=== PATIENT | female | born 1930 | race Caucasian/White ===

== ENCOUNTER 2020-09-04 10:10 | Emergency (ER) | payer MEDICARE ==
[~2020-09-04 10:10] MED LIST: ASPIRIN CHEWABL81 MG PO; CARDIZEM CD240 MG PO; COLACE100 MG PO; DOXYCYCLINE MO100 MG PO; FOLIXAPURE5000 UNIT PO; LEXAPRO 10MG TA10 MG PO; LOPRESSOR25 MG PO; OXY-IR 5MG5 MG PO; PRAVASTATIN SOD10 MG PO; PRILOSEC20 MG PO; TRAMADOL HCL50 MG PO; TYLENOL #31 EACH PO; ULTRAM50 MG PO; [UNRECOGNIZED DRUG - OTHER] PO
== END 2020-09-04 12:14 | disposition home or self-care (01) ==
LOC: FER 10:10
DX: S20.211A Contusion of right front wall of thorax, initial encounter (principal); S00.83XA Contusion of other part of head, initial encounter; M79.601 Pain in right arm; E78.00 Pure hypercholesterolemia, unspecified; I10 Essential (primary) hypertension; Z79.899 Other long term (current) drug therapy
CPT/HCPCS: 71101

== ENCOUNTER 2020-11-08 20:26 | Emergency (ER) | payer MEDICARE ==
[2020-11-08 21:55] LABS: BASOPHIL 0.4 % (0-2); EOSINOPHIL 1.8 % (0-7); HCT 36.6 % (37.0-47.0); HGB 12.4 g/dl (12.5-16.0); LYMPHOCYTE 2.5 % (15-48); MCH 29.9 pg (25.0-31.0); MCHC 33.9 g/dL (32.0-36.0); MCV 88.2 fL (78.0-100.0); MONOCYTE 3.3 % (0-12); MPV 10.1 fL (6.0-9.5); NEUTROPHIL 91.8 % (41-80); NRBC 0; PLT 556 K/uL (150-400); RBC 4.15 M/uL (4.20-5.40); RDW 13.4 % (11.5-14.0)
[2020-11-08 22:06] LABS: INR 1.1 (0.9-1.2); PROTHROMBIN TIME 13.5 SECONDS (11.4-13.6); PTT 28.6 SECONDS (22.2-34.7)
[2020-11-08 22:22] LABS: ALBUMIN 2.6 g/dL (3.4-5.0); ALKALINE PHOSHATASE 128 U/L (46-116); ALT 31 U/L (14-59); AST 23 U/L (15-37); BILIRUBIN - TOTAL 0.7 mg/dL (0.2-1.0); BUN 31 mg/dL (7-18); CHLORIDE 95 mmol/L (98-107); CO2 (BICARBONATE) 24 mmol/L (21-32); CPK 25 U/L (26-192); CREATININE 1.33 mg/dL (0.51-0.95); GLOBULIN (CALCULATION) 4.3 g/dL; GLUCOSE 145 mg/dL (74-106); LDH 182 U/L (81-234); LIPASE 204 U/L (73-393); MAGNESIUM 1.6 mg/dL (1.8-2.4); POTASSIUM 4.4 mmol/L (3.5-5.1); PRO-BNP 2905 pg/mL (<450); TOTAL PROTEIN 6.9 g/dL (6.4-8.2)
[2020-11-08 22:25] LABS: LACTIC ACID 2.5 mmol/L (0.4-1.9)
[2020-11-09 00:06] LABS: BILIRUBIN NEGATIVE (NEGATIVE); BLOOD NEGATIVE Ery/uL (NEGATIVE); CLARITY CLEAR (CLEAR); COLOR YELLOW (YELLOW); GLUCOSE (U) NORMAL (NORMAL); LEUKOCYTES 1+ Leu/uL (NEGATIVE); NITRITE NEGATIVE (NEGATIVE); PROTEIN TRACE (LOW) mg/dL (NEGATIVE); UROBILINOGEN 0.2 mg/dL (0.2-1.0)
[2020-11-09 00:12] LABS: BACTERIA TRACE; SQUAMOUS EPITHELIAL CELLS RARE
[2020-11-09 05:11] LABS: BASOPHIL 0.6 % (0-2); EOSINOPHIL 0.4 % (0-7); HCT 31.8 % (37.0-47.0); HGB 10.6 g/dl (12.5-16.0); LYMPHOCYTE 2.4 % (15-48); MCH 30.1 pg (25.0-31.0); MCHC 33.3 g/dL (32.0-36.0); MCV 90.3 fL (78.0-100.0); MONOCYTE 1.5 % (0-12); MPV 10.1 fL (6.0-9.5); NRBC 0; PLT 505 K/uL (150-400); RBC 3.52 M/uL (4.20-5.40); RDW 13.7 % (11.5-14.0)
[2020-11-09 05:29] LABS: BUN/CREAT RATIO (CALC) 20.9 RATIO; CREATININE 1.63 mg/dL (0.51-0.95); POTASSIUM 4.6 mmol/L (3.5-5.1)
== END 2020-11-09 08:18 | disposition other institution (70) ==
LOC: FER 20:26
PROVIDERS: Emergency Medicine
DX: A41.9 Sepsis, unspecified organism (principal); R65.21 Severe sepsis with septic shock; K63.1 Perforation of intestine (nontraumatic); J98.59 Other diseases of mediastinum, not elsewhere classified; K66.8 Other specified disorders of peritoneum; Z20.822 Contact with and (suspected) exposure to COVID-19; Z79.899 Other long term (current) drug therapy
CPT/HCPCS: 36415; 71045; 71250; 80048; 80053; 80162; 81001; 82550; 83605; 83615; 83690; 83735; 83880; 84145; 84443; 84484; 85025; 85610; 85730; 87040; 87088; 93005; 96365; 96366; 96367; 96375; 96376; J1170; J2405; J2543; J3010; J3480; J7030; J7040; U0002

== ENCOUNTER 2020-12-06 04:23 | Emergency (ER) | payer MEDICARE ==
[2020-12-06 06:35] LABS: BASOPHIL 0.9 % (0-2); EOSINOPHIL 2.3 % (0-7); HCT 32.4 % (37.0-47.0); HGB 9.7 g/dl (12.5-16.0); LYMPHOCYTE 12.9 % (15-48); MCHC 29.9 g/dL (32.0-36.0); MCV 100.3 fL (78.0-100.0); MONOCYTE 12.1 % (0-12); MPV 11.1 fL (6.0-9.5); NEUTROPHIL 71.3 % (41-80); NRBC 0; PLT 464 K/uL (150-400); RBC 3.23 M/uL (4.20-5.40); RDW 18.1 % (11.5-14.0); WBC 10.5 K/uL (4.0-10.5)
[2020-12-06 06:51] LABS: ALBUMIN 2.5 g/dL (3.4-5.0); BILIRUBIN - TOTAL 0.3 mg/dL (0.2-1.0); BUN/CREAT RATIO (CALC) 69.6 RATIO; CREATININE 0.92 mg/dL (0.51-0.95); GLOBULIN (CALCULATION) 3.4 g/dL; POTASSIUM 2.9 mmol/L (3.5-5.1); TOTAL PROTEIN 5.9 g/dL (6.4-8.2)
[2020-12-06 15:23] LABS: CREATININE 0.84 mg/dL (0.51-0.95)
== END 2020-12-06 20:45 | disposition other institution (70) ==
LOC: FER 04:23
PROVIDERS: Emergency Medicine; Emergency Medicine Emergency Medical Services
DX: K94.23 Gastrostomy malfunction (principal); E87.0 Hyperosmolality and hypernatremia; I48.91 Unspecified atrial fibrillation; I12.9 Hypertensive chronic kidney disease with stage 1 through stage 4 chronic kidney disease, or unspecified chronic kidney disease; N18.9 Chronic kidney disease, unspecified; Z87.81 Personal history of (healed) traumatic fracture
CPT/HCPCS: 36415; 74018; 80048; 80053; 83605; 85025; J7120

== ENCOUNTER 2021-02-16 19:49 | Inpatient (IN) | payer MEDICARE ==
[~2021-02-16] VITALS: Ht 160 cm; Wt 38.2 kg
[2021-02-16 20:59] LABS: BASOPHIL 0.1 % (0-2); EOSINOPHIL 0 % (0-7); HCT 33.1 % (37.0-47.0); HGB 11.1 g/dl (12.5-16.0); LYMPHOCYTE 5.2 % (15-48); MCH 28.9 pg (25.0-31.0); MCHC 33.5 g/dL (32.0-36.0); MCV 86.2 fL (78.0-100.0); MONOCYTE 4.4 % (0-12); MPV 11.8 fL (6.0-9.5); NEUTROPHIL 89.9 % (41-80); NRBC 0; PLT 453 K/uL (150-400); RBC 3.84 M/uL (4.20-5.40); RDW 15.7 % (11.5-14.0)
[2021-02-16 21:49] LABS: ALBUMIN 2.8 g/dL (3.4-5.0); ALKALINE PHOSHATASE 112 U/L (46-116); ALT 52 U/L (14-59); AST 45 U/L (15-37); BILIRUBIN - TOTAL 0.3 mg/dL (0.2-1.0); CHLORIDE 80 mmol/L (98-107); GLOBULIN (CALCULATION) 6.3 g/dL; GLUCOSE 218 mg/dL (74-106); POTASSIUM 3.9 mmol/L (3.5-5.1); TOTAL PROTEIN 9.1 g/dL (6.4-8.2)
[2021-02-16 21:50] LABS: LACTIC ACID 1.5 mmol/L (0.4-1.9)
[2021-02-16 21:51] LABS: BILIRUBIN NEGATIVE (NEGATIVE); BLOOD TRACE-INTACT Ery/uL (NEGATIVE); CLARITY CLEAR (CLEAR); COLOR YELLOW (YELLOW); GLUCOSE (U) NORMAL (NORMAL); LEUKOCYTES TRACE Leu/uL (NEGATIVE); NITRITE NEGATIVE (NEGATIVE); PROTEIN TRACE (LOW) mg/dL (NEGATIVE); UROBILINOGEN 0.2 mg/dL (0.2-1.0)
[2021-02-16 22:01] LABS: AMORPHOUS URATES CRYSTALS LARGE; BACTERIA 1+; URINARY RBC RARE
[2021-02-16 22:03] LABS: BUN >225 mg/dL (7-18)
[2021-02-16 22:04] LABS: CO2 (BICARBONATE) > 45 mmol/L (21-32)
[2021-02-16 23:42] LABS: PHOSPHORUS 4.6 mg/dL (2.6-4.7)
[2021-02-16] MEDS ORDERED: HYDRALAZINE25 MG PO (23:47)
[2021-02-16] MEDS ORDERED: SANTYL15 GM TOP (23:49)
[2021-02-16] MEDS ORDERED: MICONAZOLE 2% P85 GM TOP (23:49)
[2021-02-17 06:18] LABS: BASOPHIL 0.2 % (0-2); EOSINOPHIL 0 % (0-7); HCT 31.6 % (37.0-47.0); HGB 10.6 g/dl (12.5-16.0); LYMPHOCYTE 7.6 % (15-48); MCH 28.9 pg (25.0-31.0); MCHC 33.5 g/dL (32.0-36.0); MCV 86.1 fL (78.0-100.0); MONOCYTE 10.9 % (0-12); MPV 10.4 fL (6.0-9.5); NEUTROPHIL 80.9 % (41-80); NRBC 0; PLT 433 K/uL (150-400); RBC 3.67 M/uL (4.20-5.40); RDW 15.7 % (11.5-14.0); WBC 11.5 K/uL (4.0-10.5)
[2021-02-17 06:50] LABS: ALBUMIN 2.5 g/dL (3.4-5.0); ALKALINE PHOSHATASE 102 U/L (46-116); ALT 45 U/L (14-59); AST 25 U/L (15-37); BILIRUBIN - TOTAL 0.3 mg/dL (0.2-1.0); CHLORIDE 88 mmol/L (98-107); CREATININE 0.96 mg/dL (0.51-0.95); GLOBULIN (CALCULATION) 5.6 g/dL; GLUCOSE 159 mg/dL (74-106); TOTAL PROTEIN 8.1 g/dL (6.4-8.2)
[2021-02-17 07:05] LABS: BUN 221 mg/dL (7-18); CO2 (BICARBONATE) > 45 mmol/L (21-32)
[2021-02-17 07:06] LABS: POTASSIUM 2.4 mmol/L (3.5-5.1)
--- NOTE | 2021-02-17 10:12 | NUR ---
0943 CALL [facility] FOR A REQUEST OF RECORDS.
[2021-02-17 14:46] LABS: CREATININE 0.88 mg/dL (0.51-0.95); POTASSIUM 3.6 mmol/L (3.5-5.1)
[2021-02-17 20:15] LABS: ALBUMIN 2.5 g/dL (3.4-5.0); CREATININE 0.86 mg/dL (0.51-0.95); MAGNESIUM 3.6 mg/dL (1.8-2.4); PHOSPHORUS 2.8 mg/dL (2.6-4.7); POTASSIUM 4.5 mmol/L (3.5-5.1)
[2021-02-18 06:30] LABS: CREATININE 0.79 mg/dL (0.51-0.95); POTASSIUM 3.9 mmol/L (3.5-5.1)
[2021-02-18 17:21] LABS: CREATININE 0.68 mg/dL (0.51-0.95); POTASSIUM 3.2 mmol/L (3.5-5.1)
[2021-02-19 05:41] LABS: BASOPHIL 0.2 % (0-2); EOSINOPHIL 0.4 % (0-7); HCT 30.3 % (37.0-47.0); HGB 9.7 g/dl (12.5-16.0); LYMPHOCYTE 15.2 % (15-48); MONOCYTE 12.2 % (0-12); MPV 10.5 fL (6.0-9.5); NEUTROPHIL 71.5 % (41-80); NRBC 0; PLT 391 K/uL (150-400); RBC 3.35 M/uL (4.20-5.40); RDW 15.4 % (11.5-14.0); WBC 8.2 K/uL (4.0-10.5)
[2021-02-19 05:47] LABS: MCV 90.4 fL (78.0-100.0)
[2021-02-19 06:00] LABS: CREATININE 0.6 mg/dL (0.51-0.95); POTASSIUM 3.8 mmol/L (3.5-5.1)
[2021-02-19 06:03] LABS: MAGNESIUM 2.3 mg/dL (1.8-2.4)
--- NOTE | 2021-02-19 06:28 | NUR ---
THIS NURSE ARRIVED TO ROOM AT 0605 FOR Q2H TURN. PT WAS WIDE AWAKE. J TUBE WAS OUT OF PATIENT, GASTRIC CONTENTS WERE LEAKING OVER BED. INES ANGELES NOTIFIED. AREA CLEANED WITH BETADINE AND GAUZE PLACED OVER AREA.
== END 2021-02-19 18:00 | DRG 683 ==
LOC: FER 19:49 → FMS 22:34
PROVIDERS: Allergy & Immunology Allergy; Emergency Medicine; Nurse Practitioner; ADMIT Internal Medicine
PROC: 0D2DXUZ Change Feeding Device in Lower Intestinal Tract, External Approach (ICD-10-PCS; principal; 2021-02-19)
DX: N17.9 Acute kidney failure, unspecified (principal); N39.0 Urinary tract infection, site not specified; Z43.1 Encounter for attention to gastrostomy; E87.1 Hypo-osmolality and hyponatremia; E87.3 Alkalosis; J90 Pleural effusion, not elsewhere classified; Z20.822 Contact with and (suspected) exposure to COVID-19; E86.0 Dehydration; Z66 Do not resuscitate; I10 Essential (primary) hypertension; Z91.81 History of falling; G89.29 Other chronic pain; M54.9 Dorsalgia, unspecified; R13.10 Dysphagia, unspecified; I48.0 Paroxysmal atrial fibrillation; Z79.01 Long term (current) use of anticoagulants; I95.9 Hypotension, unspecified; K56.41 Fecal impaction
CPT/HCPCS: 36415; 74018; 74019; 80048; 80053; 80069; 81001; 82553; 83605; 83735; 84100; 84145; 84484; 85025; 87040; 87088; 93005; 94760; J0696; J1650; J2270; J2405; J3480; J7030; J7070; U0002